=== PATIENT | female | born 1970 | race Caucasian/White ===

== ENCOUNTER → 2024-12-18 | Outpatient (CLI) | payer BC, SELFPAY ==
[2024-12-18 16:26] LABS: Prothrombin Time 10.9 Seconds (9.0-12.2)
[2024-12-18 16:36] LABS: Alanine Aminotransferase 21 U/L (10-49); Albumin, Serum 4.9 gm/dL (3.5-5.0); Alkaline Phosphatase 81 U/L (46-116); Aspartate Amino Transferase 23 U/L (0-34); Bilirubin,Direct 0.1 mg/dL (0.0-0.3); Bilirubin,Total 0.4 mg/dL (0.3-1.2); Total Protein 7.8 gm/dL (5.7-8.2)
[2024-12-18 17:12] LABS: Hepatitis A Antibody IgM Non Reactive (Non React); Hepatitis B Core Antibody IgM Non Reactive (Non React); Hepatitis B Surface Antigen Non Reactive (Non React); Hepatitis C Antibody Non Reactive (Non React)
[2024-12-18 22:30] LABS: Total Iron Binding Capacity 334 mcg/dL (250-425)
[2024-12-18 22:40] LABS: Iron 77 mcg/dL (50-170); Percent Iron Saturation 23 % (20-55); Unsaturated Iron Binding 257 (225-295)
[2024-12-24 06:45] LABS: ACTH, Plasma* 16 pg/mL (6-50)
[2024-12-26 06:47] LABS: ANA Pattern CYTOPLASMIC; ANA Screen, IFA POSITIVE (NEGATIVE); Alpha-1-Antitrypsin* 115 mg/dL (83-199); Ceruloplasmin* 23 mg/dL (14-48); Copper* 96 mcg/dL (70-175); Mitochondrial Ab NEGATIVE (NEGATIVE)
== END | disposition home or self-care (01) ==
LOC: COPL 15:03
PROVIDERS: PCP Internal Medicine; Referring Provider Specialist; Visit Provider Specialist
DX: R94.5 Abnormal results of liver function studies (principal)
CPT/HCPCS: 36415; 80074; 80076; 82024; 82103; 82105; 82390; 82525; 83540; 83550; 85610; 86038; 86039; 86255

== ENCOUNTER 2025-07-17 07:10 | Emergency (ER) | payer BC, SELFPAY ==
[2025-07-17 07:29] VITALS: BP 157/88; PULSE 86; RESP 18; TEMP 37; O2SAT 99; BMI 36.6
--- NOTE | 2025-07-17 07:36 | PD.EDEXREM ---
ED Extremity Problem RME/HPI General Chief complaint: Extremity Problem,Nontraumatic Stated complaint: LEFT THIGH PAIN RADIATING TO KNEE x 1 DAYS Time Seen by Provider: 07/17/25 07:36 Source: patient and family Arrival date/time: 07/17/25 07:10 Limitations: no limitations RME / HPI RME / HPI Narrative: Patient is a 55-year-old female with medical history notable for psoriatic arthritis is in the emergency ferment concerns for acute onset left knee pain. Denies any fevers chills nausea vomiting chest pain palpitations overexertion history of IV drug use history of STI history of pain in her other joints or swelling in other joints,. Patient works as a developmental delay therapist. She walks into a race vehicle daily and has had to position herself differently recently because of a broken chair. Denies hemoptysis, recent travel, little unilateral lower extremity swelling, use of hormonal medications or history of blood clots. MD Complaint: extremity pain Location: left Related Data Home Medications ?Medication ?Instructions ?Recorded ?Confirmed ferrous sulfate 325 mg (65 mg 325 mg PO QDAY 11/02/23 11/02/23 iron) tablet (Iron (ferrous sulfate)) lisinopril 20 1 tab PO QDAY 11/02/23 11/02/23 mg-hydrochlorothiazide 12.5 mg tablet multivitamin 1 tab PO QDAY 11/02/23 11/02/23 Previous Rx's ?Medication ?Instructions ?Recorded ipratropium bromide 21 mcg (0.03 2 spray intranasal BID #30 mL 06/28/19 %) nasal spray Allergies Allergy/AdvReac Type Severity Reaction Status Date / Time apremilast (From Otezla) Allergy Severe Swelling Verified 07/17/25 07:13 of the Eye sulfamethoxazole (From Allergy Severe RASH ALL Verified 07/17/25 07:13 Bactrim) OVER trimethoprim (From Bactrim) Allergy Severe RASH ALL Verified 07/17/25 07:13 OVER ED Exam General Limitations: Present no limitations General appearance: Present alert and in no apparent distress Head Head exam: Present atraumatic Eye Eye exam: Present normal appearance Neck Neck exam: Present normal inspection Chest Chest inspection: Present normal inspection Respiratory Respiratory exam: Absent respiratory distress Cardiovascular Cardiovascular exam: Present regular rate and normal rhythm Extremities Exam Extremities exam: Present normal inspection, full ROM, normal capillary refill and other (Negative anterior, posterior drawer, valgus and varus stress testing also negative, no joint instability, no swelling, no erythema, no fluctuance no skin changes; lower extremities warm and well-perfused, no edema, 2+ DP pulse); Absent tenderness, pedal edema, joint swelling or calf tenderness Course Quality Measures none Orders Category Date Time Status US venous duplex LE LT Stat Exams 07/17/25 07:41 Completed Vital Signs Vital signs: Vital Signs Temperature 98.6 F 07/17/25 07:29 Pulse Rate 86 07/17/25 07:29 Respiratory Rate 18 07/17/25 07:29 Blood Pressure 157/88 H 07/17/25 07:29 Pulse Oximetry (%) 99 07/17/25 07:29 Oxygen Delivery Method Room Air 07/17/25 07:29 Extremity Problem MDM Narrative MDM Narrative:: Patient is a 55-year-old female is in the emergency room with concerns for acute onset left knee pain. Vital signs and exam as listed. Concern for DVT, muscle strain, soft tissue injury. Patient without any ligamentous instability, no swelling, no skin changes, no signs of fracture or dislocation. No signs of infection, less likely septic joint. I do not Tasonermin conversation with patient. Will proceed with lower extremity ultrasound offered medication for symptom relief. Ultrasound without evidence of DVT. On reevaluation patient hemodynamically stable not in distress, symptoms well-controlled will discharge home close return precautions follow-up with primary doctor. Patient data External records reviewed:: [facility] previous records Clinical information provided by:: patient Social determinants that could affect healthcare access:: none Patient has the following chronic illnesses:: See MDM How is presenting disease/condition affected by chronic disease/condition?: caused by Evaluation data The following diagnostics were reviewed and interpreted by me:: radiology exam(s) Lab and/or radiology exams considered but not ordered:: None Interpretation Summary: See MDM Medications / Prescriptions Medications or Prescriptions considered but not ordered:: None Medication administrations:: See below Consultations Consultation(s) initiated? (list below): No Diagnosis Extremity Problem Differential Diagnosis: deep venous thrombosis of upper extremity and other (Muscle strain, muscle injury) Most likely diagnosis given after review of the tests above:: Muscle strain Admission Indicated Admission indicated?: not indicated Admission Request Was there a request for admission?: No Disposition Plan Disposition Plan: Discharge Discharge Attestation Discharge Attestation: The patient and all family members were given an opportunity to ask questions and understood the discharge instructions. Discharge instructions specifically effects, indications for sooner follow up or return to the emergency department, and the expected course of current diagnosis. Patient condition: Stable Discharge Plan Plan Patient Disposition: HOME (Self Care) Prescriptions/Referrals Prescriptions/Med Rec: No Action ipratropium bromide 0.03 % spray,non-aerosol 2 spray INTRANASAL BID Qty: 30 0RF Rx Instructions: administer into each nostril; wait 30 seconds between sprays multivitamin Tablet 1 tab PO QDAY lisinopril-hydrochlorothiazide 20-12.5 mg Tablet 1 tab PO QDAY ferrous sulfate [Iron (ferrous sulfate)] 325 mg (65 mg iron) Tablet 325 mg PO QDAY Problem List Clinical Impression: Muscle strain Patient/Caregiver Discharge Instructions Education Materials: ED Arthralgia Additional Instructions: You can use the lidocaine patches, ice to help with your symptoms. If you develop worsening symptoms, swelling, fever or any other symptom of concern please return to the emergency department mediately. Please follow-up with your primary care doctor within 1 to 2 days Print Language: Amharic Stand Alone Forms: Mai Award Info., Patient Portal Info Letter
--- NOTE | 2025-07-17 07:41 | XR_ITS ---
Examination: Duplex scan of the lower extremity, unilateral left complete Date and time of exam: July 17, 2025 0750 hours INDICATIONS: Left leg pain onset 2 days ago Technique: Duplex scan of the extremity veins using B-mode/grayscale imaging and Doppler spectral analysis and color flow Attention is directed to internal echogenicity, compression and augmentation involving these veins, color flow assessment, spectral analysis Findings: Major deep venous structures in the extremity demonstrate normal course and caliber. There is no evidence of deep vein thrombosis. Normal color flow and spectral analysis Impression: Negative for DVT..
--- NOTE | 2025-07-17 11:17 | PC.NURSE ---
RADIOLOGY CALLED MULTIPLE TIMES ABOUT ULTRASOUND AND REPORT STILL NOT DONE
--- NOTE | 2025-07-17 11:29 | PC.NURSE ---
CALLED ULTRASOUND ABOUT RESULTS AND TOLD BY GRAY THAT SHE HAS INFORMED DR. OHARA MULTIPLE TIMES
== END 2025-07-17 13:00 | disposition home or self-care (01) ==
LOC: SERX 08:20
PROVIDERS: Emergency Provider Emergency Medicine
DX: S86.912A Strain of unspecified muscle(s) and tendon(s) at lower leg level, left leg, initial encounter (principal); X58.XXXA Exposure to other specified factors, initial encounter
CPT/HCPCS: 93971; 99282

== ENCOUNTER → 2025-09-08 | Outpatient (CLI) | payer BC, SELFPAY ==
[2025-09-08 09:10] LABS: Collection Type, Urine Clean Catch
[2025-09-08 09:38] LABS: Bilirubin,Urine Negative (Negative); Blood,Urine 3+ (Negative); Color,Urine Lt-Yellow (Lt Yel-Yel); Glucose, Urine Negative (Negative); Ketones,Urine Negative (Negative); Leukocyte Esterase,Urine Positive (Negative); Nitrite,Urine Negative (Negative); PH,Urine 5.5 (5.0-7.0); Protein,Urine Negative (Neg - Trace); RBC,Urine 24 /hpf (0-3); Specific Gravity,Urine 1.017 (1.001-1.035); Squamous Epithelial Cell,Urine 1 /hpf (0-5); Urobilinogen,Urine Negative mg/dL (0.0-1.0); WBC,Urine 6 /hpf (0-5)
[2025-09-08 09:45] LABS: Glucose Estimated Average 114 mg/dL (80-131); Hemoglobin A1C 5.6 % Hgb (4.8-6.0)
[2025-09-08 09:51] LABS: Clarity,Urine Hazy (Clear/Hazy)
[2025-09-08 09:55] LABS: Basophils # (Auto) 0.1 Thou/mm3 (0.0-0.2); Basophils % (Auto) 1 % (0-2.5); Eosinophils # (Auto) 0.3 Thou/mm3 (0.0-0.5); Eosinophils % (Auto) 3 % (0-10); Hematocrit 44.4 % (36.0-46.0); Hemoglobin 14.8 g/dL (12.0-16.0); Immature Granulocytes Auto 0.09 Thou/mm3 (0.00-0.00); Lymphocytes # (Auto) 2.9 Thou/mm3 (1.0-4.8); Lymphocytes % (Auto) 29 % (10-50); Mean Corpuscular HGB Conc 33.3 g/dl (31.0-37.0); Mean Corpuscular Hemoglobin 30.6 pg (25.0-35.0); Mean Corpuscular Volume 92 fL (80-100); Monocytes # (Auto) 0.7 Thou/mm3 (0.0-0.8); Monocytes % (Auto) 7 % (0-12); Neutrophils # (Auto) 6.0 Thou/mm3 (1.8-7.7); Neutrophils % (Auto) 59 % (37-80); Nucleated Red Blood Cell # 0.00 Thou/mm3 (0.00-0.00); Nucleated Red Blood Cell % 0 /100 WBC (0); Platelet Count 299 Thou/mm3 (140-440); RDW Standard Deviation 43.1 fL (36.4-46.3); Red Blood Count 4.84 Miln/mm3 (4.00-5.20); White Blood Count 10.2 Thou/mm3 (3.6-11.0)
[2025-09-08 11:39] LABS: Vitamin B12 453 pg/mL (211-911); Vitamin D 25 Hydroxy Total 23.9 ng/mL (7.3-40.2)
[2025-09-08 11:51] LABS: Alanine Aminotransferase 23 U/L (10-49); Albumin, Serum 4.6 gm/dL (3.5-5.0); Albumin/Globulin Ratio 1.5 (1.2-2.2); Alkaline Phosphatase 81 U/L (46-116); Anion Gap 9 (7-16); Aspartate Amino Transferase 28 U/L (0-34); BUN/Creatinine Ratio 13 Ratio (12-20); Bilirubin,Total 0.4 mg/dL (0.3-1.2); Blood Urea Nitrogen 12 mg/dL (9-23); Calcium 9.7 mg/dL (8.3-10.6); Calcium (Corrected) 9.7 mg/dL (8.5-10.1); Carbon Dioxide 28.6 mMol/L (20.0-31.0); Cardiac Risk Estimate 4.5 RATIO (3.7-5.6); Chloride 105 mMol/L (98-107); Cholesterol 156 mg/dL (132-200); Creatinine (Component) 0.9 mg/dL (0.6-1.3); Globulin 3.0 gm/dL (2.3-3.5); Glucose 108 mg/dL (74-106); HDL Cholesterol 35 mg/dL (40-60); LDL Cholesterol,Calculated 92 mg/dL (0-130); Osmolality,Calculated 285 (275-295); Potassium 4.9 mMol/L (3.4-5.1); Sodium 143 mMol/L (136-145); Thyroid Stimulating Hormone 3.92 uIU/mL (0.55-4.78); Total Protein 7.6 gm/dL (5.7-8.2); Triglycerides 145 mg/dL (30-150); Uric Acid 7.9 mg/dL (3.1-7.8); eGFR > 60 See Note
== END | disposition home or self-care (01) ==
LOC: COPL 08:12
PROVIDERS: PCP Internal Medicine; Referring Provider Internal Medicine; Visit Provider Internal Medicine
DX: Z00.00 Encounter for general adult medical examination without abnormal findings (principal); I10 Essential (primary) hypertension
CPT/HCPCS: 36415; 80053; 80061; 81001; 82306; 82607; 83036; 84443; 84550; 85025